=== PATIENT | male | born 1995 | race Caucasian/White ===

== ENCOUNTER 2020-07-03 09:41 | Emergency (ER) | payer MEDICAID, OTHER ==
[2020-07-03] MEDS ORDERED: Diphtheria,Pertussis(Acell),Tetanus Vaccine 0.5 ML SDV IM ONE (10:23)
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
--- NOTE | 2020-07-03 20:49 | CR ---
CLINICAL DATA; Injury. LEFT FOOT, 03 JULY 2020: No priors. No acute fracture or dislocation. There is a sclerotic density in the proximal 1st metatarsal, which is most likely a bone island. No other lytic or blastic bone lesions. No other significant findings. Job: [id number] [facility]
== END 2020-07-03 10:37 | disposition home or self-care (01) ==
LOC: LB.ED 09:41
DX: S91.112A Laceration without foreign body of left great toe without damage to nail, initial encounter (principal); Z88.5 Allergy status to narcotic agent; W22.8XXA Striking against or struck by other objects, initial encounter
CPT/HCPCS: 73630-LT; 99282; 99283-25

== ENCOUNTER 2021-12-20 18:17 | Emergency (ER) | payer MEDICAID ==
[2021-12-20 18:46] VITALS: BP 144/84
[2021-12-20] MEDS ORDERED: Ketorolac 60 MG/2 ML SDV IM ONE (19:09)
== END 2021-12-20 19:52 | disposition home or self-care (01) ==
LOC: LB.ED 18:17
DX: G44.201 Tension-type headache, unspecified, intractable (principal); M77.12 Lateral epicondylitis, left elbow; Z88.8 Allergy status to other drugs, medicaments and biological substances
CPT/HCPCS: 96372; 99282; 99283; J1885